=== PATIENT | male | born 1985 | race Caucasian/White ===

== ENCOUNTER 2017-06-21 17:00 | Emergency (ER) | payer BC, OTHER ==
[~2017-06-21] VITALS: Ht 180.3 cm; Wt 77.1 kg
[~2017-06-21 17:00] MED LIST: ACHD5005 PO; ALB0.5V INH; ALBU17AE23 IH; AMOX500C2 PO; BUPR8TAB SL; CIPR500T78 PO; DCS100C PO; DOXY100C2 PO; HCA25SU PR; HYDR-757 PO; HYOS0.1217 PO; IBUP-1780 PO; NAPR-243 PO; PENI500T; PHEN200T27 PO; PRCD5U PO; PRD20T PO; PRD50T PO; SRTR100T PO; SULF1TAB38 PO; TRM50T PO; buprenorphine PO
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
[2017-06-21] MEDS ORDERED: KETOROLAC 60 MG/2 ML VIAL IM ONE (18:00)
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
--- NOTE | 2017-06-21 18:54 | Diagnostic Imaging Report ---
INDICATION: Back pain. EXAMINATION: AP and lateral views of the lumbar spine were obtained. FINDINGS: The lumbar vertebrae are normal in height and alignment. There is no significant disc space narrowing. There is no fracture or malalignment. IMPRESSION: No acute bony abnormality in the lumbar spine. Dictated by: Dictated on workstation # [id number]
[2017-06-21 19:05] VITALS: BP 141/94
== END 2017-06-21 19:05 | disposition home or self-care (01) ==
LOC: EDUNIT# 17:00 → ER 17:04
DX: S39.012A Strain of muscle, fascia and tendon of lower back, initial encounter (principal); V03.00XA Pedestrian on foot injured in collision with car, pick-up truck or van in nontraffic accident, initial encounter; Y92.59 Other trade areas as the place of occurrence of the external cause; Y99.0 Civilian activity done for income or pay
CPT/HCPCS: 72072; 72100; 96372; 99284

== ENCOUNTER 2017-06-26 21:48 | Emergency (ER) | payer OTHER ==
[~2017-06-26] VITALS: Ht 180.3 cm; Wt 77.4 kg
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
[2017-06-26] MEDS ORDERED: ACETAMINOPHEN 500 MG TAB (TYLENOL) PO ONE (23:15)
[2017-06-26] MEDS ORDERED: ONDA4TAB8 PO (23:16)
[2017-06-26 23:24] VITALS: BP 119/76
--- OUTSIDE RECORDS SUMMARY | 2017-06-27 04:21 | XMS REPORT ---
Author Author BASSAM PIERRE Organization [employer] Address Unknown Phone Unavailable Care Team Providers Care Manager Validation Name Role Phone BASSAM PIERRE CP Unavailable Allergies No Known Allergies Problems No Known Problems Medications No Known Medications Results No Known Results Summary Purpose [employer] Submission
--- OUTSIDE RECORDS SUMMARY | 2017-06-27 04:21 | XMS REPORT ---
Author Author BASSAM PIERRE [employer] Address Unknown Phone Unavailable Care Team Providers Care Supervisor [employer] Name Role Phone BASSAM PIERRE CP Unavailable Allergies, Adverse Reactions, Alerts Substance Reaction Event Type N.K.D.A. Info Not Available Non Drug Allergy Problems Problem Type Condition Code Onset Dates Condition Status Assessment Yellow skin R17 Active Assessment Urine abnormality R82.90 Active Medications Medication Code System Code Instructions Start Date End Date Status Dosage Buprenorphine [facility] [id number] 10 MCG/HR Transdermal 1 patch to skin Procedures Procedure Coding System Code Date COMPLETE CBC W/AUTO DIFF WBC CPT-4 41883 Dec 15, 2015 VENIPUNCT, ROUTINE* CPT-4 38450 Dec 15, 2015 COMPREHEN METABOLIC PANEL CPT-4 45292 Dec 15, 2015 URINALYSIS, AUTO, W/O SCOPE CPT-4 41781 Dec 15, 2015 Office Visit, Est Pt., Level 3 CPT-4 79774 Dec 15, 2015 Vital Signs Date/Time: Dec 15, 2015 Temperature 99.2 F Weight 176.8 lbs Height 70 in BMI 25.37 Index Blood Pressure Diastolic 84 mmHg Blood Pressure Systolic 122 mmHg Cardiac Monitoring Heart Rate 88 bpm Results Name Result Date Reference Range Unit Abnormality Flag UA LONG DIP (IN HOUSE) ----SARAH Negative 20151215 ----NIT Negative 20151215 ----Exp date 05/19/201720151215 ----Lot # [id number] 20151215 ----SG 1.020 20151215 ----KET Trace 20151215 ----ASH Negative 20151215 ----GLU Negative 20151215 ----Odor Strong 20151215 ----pH 5.0 20151215 ----BLO Negative 20151215 ----URO 0.2 20151215 ----Protein Negative 20151215 ----Lot # [id number] 20151215 ----Exp date 07/20/201620151215 ----Clarity Clear 20151215 ----Color Yellow 20151215 ROUTINE VENIPUNCTURE Summary Purpose [employer] Submission
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
== END 2017-06-26 23:24 | disposition home or self-care (01) ==
LOC: EDUNIT# 21:48 → ER 21:49
DX: S05.11XA Contusion of eyeball and orbital tissues, right eye, initial encounter (principal); F32.9 Major depressive disorder, single episode, unspecified; Z98.890 Other specified postprocedural states; F17.210 Nicotine dependence, cigarettes, uncomplicated; W21.07XA Struck by softball, initial encounter; Y93.64 Activity, baseball
CPT/HCPCS: 70486; 99283

== ENCOUNTER 2017-07-30 07:21 | Emergency (ER) | payer SELFPAY ==
[~2017-07-30] VITALS: Ht 180.3 cm; Wt 77.4 kg
[~2017-07-30 07:21] MED LIST changes: +ONDA4TAB8 PO
[2017-07-30] MEDS ORDERED: IBUPROFEN 800 MG (MOTRIN) TAB PO STA (07:39)
--- NOTE | 2017-07-30 07:44 | ED Cough/URI ---
General Chief Complaint: Cough/Cold/Flu Symptoms Stated Complaint: FEVER/FLU SYMPTOMS Nursing Triage Note: AMB TO ROOM C/O FEVER AND BODY ACHES SINCE . MIGUEL ÁNGEL ON ADMIT. Source: patient Exam Limitations: no limitations History of Present Illness Time seen by provider: 07:32 Initial Comments Here with report of cough, fever and body aches that started 4 days ago. Seemed to be at its worse 2 days ago but persists to today. Complains of a clear runny nose and moderate cough. Has body aches and multiple joints. Mild headache reported. Reports that he is drinking okay and knows that he needs to drink more. Fever is responding to Tylenol and ibuprofen. Last dose of ibuprofen was yesterday and last dose of Tylenol was earlier this morning. Does report that he had fever of 104 Fahrenheit earlier. Timing/Duration: getting worse Severity/Quality: moderate, productive cough Prior Episodes/Possible Cause: occasional episodes Associated Symptoms: cough, fever/chills, headache, muscle aches, nasal congestion, nasal drainage, sore throat Allergies and Home Medications Allergies Coded Allergies: No Known Drug Allergies (Unverified , 08/06/12) Home Medications Buprenorphine HCl 8 Mg Tab.subl, 8 MG SL TID, #20 (Reported) Ibuprofen 800 Mg Tablet, 800 MG PO Q8H PRN for PAIN, #60 Ref 0 Prescribed by: SMOOTH GALLOWAY on 11/09/15 0141 Ondansetron 4 Mg Tab.rapdis, 4 MG PO Q6H PRN for NAUSEA/VOMITING-1ST LINE, #14 Ref 0 Prescribed by: NAYELI RANKIN on 06/26/17 2316 Constitutional: see HPI, No chills, fever EENTM: see HPI Respiratory: see HPI, cough, No short of breath, No wheezing Cardiovascular: no symptoms reported Gastrointestinal: no symptoms reported, No abdominal pain, No nausea, No vomiting Genitourinary: no symptoms reported Musculoskeletal: see HPI, joint pain, muscle pain Skin: no symptoms reported All Other Systems Reviewed Negative Unless Noted: Yes Past Bgfaqfh-Gbavdo-Ofieel Hx Patient Social History Alcohol Use: Denies Use Recreational Drug Use: Yes (Hydrocodone) Drug of Choice: HX Smoking Status: Current Everyday Smoker Recent Foreign Travel: No Contact w/Someone Who Travel: No Recent Infectious Disease Expo: No Recent Hopitalizations: Yes Immunizations Up To Date Tetanus Booster (TDap): Less than 5yrs Date of Pneumonia Vaccine: Aug 19, 2011 Date of Influenza Vaccine: Aug 14, 2012 Seasonal Allergies Seasonal Allergies: No Surgeries History of Surgeries: Yes (RIGHT ELBOW, RIGHT KNEE, TENDON FROM KNEE TO ELBOW) Surgeries: Orthopedic Respiratory History of Respiratory Disorde: No Cardiovascular History of Cardiac Disorders: No Neurological History of Neurological Disord: No Reproductive System Hx Reproductive Disorders: No Genitourinary History of Genitourinary Disor: No Gastrointestinal History of Gastrointestinal Di: Yes Gastrointestinal Disorders: Abdominal Hernia Musculoskeletal History of Musculoskeletal Dis: No Endocrine History of Endocrine Disorders: No HEENT History of HEENT Disorders: No Cancer History of Cancer: No Psychosocial History of Psychiatric Problem: Yes Behavioral Health Disorders: Depression Integumentary History of Skin or Integumenta: No Blood Transfusions History of Blood Disorders: No Reviewed Nursing Assessment Reviewed/Agree w Nursing PMH: Yes Family Medical History Significant Family History: No Pertinent Family Hx Physical Exam Vital Signs Vital Sign - Last 12Hours 07/30/17 07:28 Temp 102.2 Pulse 135 Resp 18 B/P (MAP) 111/64 Pulse Ox 96 O2 Delivery Room Air Capillary Refill : Less Than 3 Seconds General Appearance: WD/WN, no apparent distress HEENT: PERRL/EOMI, pharynx normal Neck: full range of motion, supple Respiratory: lungs clear, normal breath sounds Cardiovascular: no murmur, tachycardia Gastrointestinal: non tender, soft Extremities: non-tender, normal inspection Neurologic/Psychiatric: alert, oriented x 3 Skin: normal color, warm/dry Progress/Results/Core Measures Results/Orders My Orders Orders - SMOOTH GALLOWAY MD Chest Pa/Lat (2 View) (07/30/17 07:39) Ibuprofen Tablet (Motrin Tablet) (07/30/17 07:39) Vital Signs/I&O Vital Sign - Last 12Hours 07/30/17 07:28 Temp 102.2 Pulse 135 Resp 18 B/P (MAP) 111/64 Pulse Ox 96 O2 Delivery Room Air Blood Pressure Mean: 80 Progress Note : Progress Note Seen and evaluated. Two-view chest x-ray ordered. Ibuprofen 800 mg by mouth ordered. Patient would like to avoid IV if possible this is reasonable in the current situation. We will reevaluate after chest x-ray. Monitor patient. 0825: Improved. Chest x-ray is negative for pneumonia. Discharged home with return precautions. Patient verbalize understanding instructions and agreement with plan. Diagnostic Imaging Diagonstic Imaging: Xray Plain Films/CT/US/NM/MRI: chest Comments NAME: [facility]IE [facility] REC#: [id number] PT STATUS: REG ER : 1985 PHYSICIAN: SMOOTH GALLOWAY MD ADMIT DATE: 07/30/17/ER Draft Date of Exam:07/30/17 CHEST PA/LAT (2 VIEW) PA and lateral views of the chest INDICATION: Fever, flu symptoms. FINDINGS: The lungs demonstrate minimal opacity in the left lung base likely related to atelectasis. The right lung is clear. The heart size is normal. There is no effusion or pneumothorax The mediastinum and millie appear unremarkable. IMPRESSION: Minimal left basilar atelectasis. Dictated on workstation # [id number] Dict: 07/30/17806 Trans: 07/30/17812 [id number] Interpreted by: DELFIN WILBURN MD Electronically signed by: Departure Impression Impression: Primary Impression: Influenza-like symptoms Additional Impression: Fever Qualified Codes: R50.9 - Fever, unspecified Disposition: 01 HOME, SELF-CARE Condition: Stable Departure-Patient Inst. Decision time for Depature: 08:28 Referrals: WELLINGTON MCMILLAN DO (PCP/Family) Primary Care Physician Patient Instructions: Fever, Adult (DC), Viral Upper Respiratory Infection, Adult (DC) Add. Discharge Instructions: All discharge instructions reviewed with patient and/or family. Voiced understanding. Drink plenty of fluids. You may take Tylenol 1000 mg every 8 hours as needed for fever or pain. You may take ibuprofen 800 mg every 8 hours as needed for fever or pain. You may alternate these. Follow-up with your DrIris in a few days for recheck. Return for worse pain, fever, vomiting, weakness, breathing problems or other concerns as needed. SMOOTH GALLOWAY MD Jul 30, 2017 07:44
--- NOTE | 2017-07-30 08:13 | Diagnostic Imaging Report ---
PA and lateral views of the chest INDICATION: Fever, flu symptoms. FINDINGS: The lungs demonstrate minimal opacity in the left lung base likely related to atelectasis. The right lung is clear. The heart size is normal. There is no effusion or pneumothorax The mediastinum and millie appear unremarkable. IMPRESSION: Minimal left basilar atelectasis. Dictated by: Dictated on workstation # [id number]
[2017-07-30 08:36] VITALS: BP 110/69
== END 2017-07-30 08:35 | disposition home or self-care (01) ==
LOC: EDUNIT# 07:21 → ER 07:26
DX: J11.1 Influenza due to unidentified influenza virus with other respiratory manifestations (principal); F32.9 Major depressive disorder, single episode, unspecified; F17.200 Nicotine dependence, unspecified, uncomplicated; Z87.19 Personal history of other diseases of the digestive system
CPT/HCPCS: 71020; 99283

== ENCOUNTER 2018-07-26 12:19 | Emergency (ER) | payer SELFPAY ==
[~2018-07-26] VITALS: Ht 177.8 cm; Wt 79.4 kg
[~2018-07-26 12:19] MED LIST changes: +HYDR-4226 PO; -HYDR-757 PO
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
[2018-07-26] MEDS ORDERED: RT-ALBUTEROL/IPRATROPIUM 3 ML (DUONEB) VIAL ONE (13:26)
[2018-07-26] MEDS ORDERED: RT-ALBUTEROL/IPRATROPIUM 3 ML (DUONEB) VIAL INH ONE (13:30)
--- NOTE | 2018-07-26 13:31 | ED Cough/URI ---
General Chief Complaint: Cough/Cold/Flu Symptoms Stated Complaint: COUGH,FEVER,BODY ACHES Nursing Triage Note: COUGH, FEVER, BODY ACHES SINCE 07/25 NIGHT. Source: patient Exam Limitations: no limitations History of Present Illness Date Seen by Provider: Jul 26, 2018 Time Seen by Provider: 13:30 Initial Comments To ER with reports of fever up to 101 since last night, nonproductive cough, body aches. Timing/Duration: just prior to arrival Severity/Quality: dry cough Associated Symptoms: cough Allergies and Home Medications Allergies Coded Allergies: No Known Drug Allergies (Unverified , 08/06/12) Home Medications Buprenorphine HCl 8 Mg Tab.subl, 8 MG SL TID, (Reported) Ibuprofen 800 Mg Tablet, 800 MG PO Q8H PRN for PAIN Prescribed by: SMOOTH GALLOWAY on 11/09/15 0141 Ondansetron 4 Mg Tab.rapdis, 4 MG PO Q6H PRN for NAUSEA/VOMITING-1ST LINE Prescribed by: NAYELI RANKIN on 06/26/17 2266 Patient Home Medication List Home Medication List Reviewed: Yes Review of Systems Review of Systems Constitutional: see HPI EENTM: see HPI Respiratory: see HPI Cardiovascular: no symptoms reported Genitourinary: no symptoms reported Musculoskeletal: no symptoms reported Skin: no symptoms reported Psychiatric/Neurological: No Symptoms Reported Past Qnjxxlj-Qoedgi-Cwkuen Hx Patient Social History Alcohol Use: Denies Use Recreational Drug Use: Yes (Hydrocodone) Drug of Choice: HX Smoking Status: Current Everyday Smoker Type Used: Cigarettes Recent Foreign Travel: No Contact w/Someone Who Travel: No Recent Infectious Disease Expo: No Recent Hopitalizations: Yes Physical Abuse: No Sexual Abuse: No Immunizations Up To Date Tetanus Booster (TDap): Less than 5yrs Date of Pneumonia Vaccine: Aug 19, 2011 Date of Influenza Vaccine: Aug 14, 2012 Seasonal Allergies Seasonal Allergies: No Past Medical History Surgeries: Yes (RIGHT ELBOW, RIGHT KNEE, TENDON FROM KNEE TO ELBOW) Orthopedic Respiratory: No Cardiac: No Neurological: No Reproductive Disorders: No Genitourinary: No Gastrointestinal: Yes Abdominal Hernia Musculoskeletal: No Endocrine: No HEENT: No Cancer: No Psychosocial: Yes Depression Integumentary: No Blood Disorders: No Family Medical History No Pertinent Family Hx Physical Exam Vital Signs - First Documented 07/26/18 12:42 Temp 98.5 Pulse 90 Resp 14 B/P (MAP) 122/83 (96) Pulse Ox 97 O2 Flow Rate 97.00 Capillary Refill : Less Than 3 Seconds Height: 5'10.00" Weight: 175lbs. 9.0oz. 79.161948mx; 25.80 BMI Method:Stated General Appearance: WD/WN, no apparent distress Eyes: Bilateral Eye Normal Inspection, Bilateral Eye PERRL, Bilateral Eye EOMI HEENT: PERRL/EOMI, normal ENT inspection Neck: non-tender, full range of motion Respiratory: normal breath sounds, no respiratory distress, no accessory muscle use Cardiovascular: regular rate, rhythm, no murmur Gastrointestinal: normal bowel sounds, non tender, soft Neurologic/Psychiatric: alert, normal mood/affect, oriented x 3 Skin: normal color, warm/dry Progress/Results/Core Measures Suspected Sepsis Recent Fever Within 48 Hours: Yes Infection Criteria Present: Suspected New Infection New/Unexplained Altered Menta: No Sepsis Screen: No Definite Risk SIRS Temperature:98.5 Pulse: 90 Respiratory Rate: 14 Blood Pressure 122 /83 Mean: 96 Results/Orders My Orders Orders - ELIZA SHANNON APRN Chest Pa/Lat (2 View) (07/26/18 12:54) Albuterol/Ipra Inhalation Soln (Duoneb I (07/26/18 13:30) Svn Small Volume Nebulizer (07/26/18 13:27) Albuterol/Ipra Inhalation Soln (Duoneb I (07/26/18 13:26) Medications Given in ED Current Medications Medications Dose Ordered Sig/Ant Route Start Time Stop Time Status Last Admin Dose Admin Albuterol/ Ipratropium 3 ml ONCE ONCE INH 07/26/18 13:30 07/26/18 13:31 DC 07/26/18 13:33 3 ML Vital Signs/I&O 07/26/18 07/26/18 12:42 12:42 Temp 98.5 Pulse 90 Resp 14 B/P (MAP) 122/83 (96) Pulse Ox 97 O2 Flow Rate 97.00 Capillary Refill : Less Than 3 Seconds Blood Pressure Mean: 96 Departure Impression Primary Impression: Bronchitis Disposition: 01 HOME, SELF-CARE Condition: Stable Departure-Patient Inst. Decision time for Depature: 13:37 Referrals: WELLINGTON MCMILLAN DO (PCP/Family) Primary Care Physician Patient Instructions: Acute Bronchitis, Adult (DC) Add. Discharge Instructions: 1. Return to ER for any concerns 2. Follow-up with your doctor next week 3. Steroids as directed. Inhaler 2 puffs every 4 hours as needed for wheezing shortness of breath. All discharge instructions reviewed with patient and/or family. Voiced understanding. Scripts Albuterol Sulfate (PROAIR HFA) 1 Puff Puff 2 PUFF IH Q4H, #1 PUFF 1 PUFF = 90 MCG Prov: ELIZA SHANNON APRN 07/26/18 Azithromycin (Azithromycin) 250 Mg Tablet 250 MG PO UD, #6 TAB TAKE 2 TABLETS ON DAY ONE THEN TAKE 1 TABLET DAILY FOR FOUR MORE DAYS Prov: ELIZA SHANNON APRN 07/26/18 Methylprednisolone (Medrol) 4 Mg Tab.ds.pk 4 MG PO UD, #1 PKG Prov: ELIZA SHANNON APRN 07/26/18 Work/School Note: Work Release Form Date Seen in the Emergency Department: Jul 26, 2018 Return to Work: Jul 28, 2018 EILZA SHANNON APRN Jul 26, 2018 13:31
--- NOTE | 2018-07-26 13:33 | Diagnostic Imaging Report ---
INDICATION: Cough and fever. TIME OF EXAM: 01:42 p.m. Correlation is made with prior study from 07/30/2017. The heart size is normal. The pulmonary vascularity is unremarkable. The lungs are clear. No infiltrate, effusion or pneumothorax is detected. IMPRESSION: No acute cardiopulmonary process is detected. Dictated by: Dictated on workstation # [id number]
[2018-07-26] MEDS ORDERED: RT-ALBUINH IH (13:39)
[2018-07-26] MEDS ORDERED: AZIT250T12 PO (13:39)
[2018-07-26] MEDS ORDERED: METH4TAB PO (13:39)
[2018-07-26] MEDS ORDERED: DEXAMETHASONE PF 10 MG/ML (DECADRON) VIAL ONE (13:47)
[2018-07-26 13:56] VITALS: BP 122/83
[2018-07-26] MEDS ORDERED: DEXAMETHASONE 10 MG/ML (DECADRON) 1 ML VIAL IM ONE (14:00)
== END 2018-07-26 13:56 | disposition home or self-care (01) ==
LOC: EDUNIT# 12:19 → ER 12:20
DX: J40 Bronchitis, not specified as acute or chronic (principal); F32.9 Major depressive disorder, single episode, unspecified; F17.210 Nicotine dependence, cigarettes, uncomplicated; Z87.19 Personal history of other diseases of the digestive system
CPT/HCPCS: 71046

== ENCOUNTER 2018-10-24 11:31 | Emergency (ER) | payer OTHER ==
[~2018-10-24] VITALS: Ht 177.8 cm; Wt 81.6 kg
[~2018-10-24 11:31] MED LIST changes: +AZIT250T12 PO; +METH4TAB PO; +RT-ALBUINH IH
[2018-10-24] MEDS ORDERED: ACETAMINOPHEN 500 MG TAB (TYLENOL) PO STA (11:41)
--- NOTE | 2018-10-24 11:53 | ED Cough/URI ---
General Chief Complaint: Fever-Adult/Adol Stated Complaint: FLU SYMPTOMS Nursing Triage Note: Pt ambulated to rm 5 w/o difficulty. Pt reports cough that began yesterday and fever last night, accompanied by generalized body aches. Pt reports fever of 102.4 last night. Pt denies antipyretics today. Pt denies sore throat at this time. (BENJY FERMIN) History of Present Illness Date Seen by Provider: Oct 24, 2018 Time Seen by Provider: 11:40 Initial Comments 33-year-old male presents for fever, cough and congestion. He has had a dull headache. Symptoms started approximately 2 days ago. He did not receive a flu vaccine measure. He took ibuprofen last night which did relieve his fever and used albuterol which he reports helped with the cough and congestion. He denies being short of breath. He is a smoker but has not been tolerating tobacco since symptoms started. He denies any nausea or vomiting, however his appetite has been less than usual. Timing/Duration: yesterday Severity/Quality: moderate, productive cough Prior Episodes/Possible Cause: no prior episodes Modifying Factors: Improves With Coughing, Improves With Lying Down, Improves With Rest Associated Symptoms: fever/chills, headache, nasal congestion, nasal drainage (BENJY FERMIN) Allergies and Home Medications Allergies Coded Allergies: No Known Drug Allergies (Unverified , 08/06/12) Home Medications Albuterol Sulfate 1 Puff Puff, 2 PUFF IH Q4H 1 PUFF = 90 MCG Prescribed by: ELIZA SHANNON on 07/26/18 1339 Albuterol Sulfate 2.5 Mg/0.5 Ml Vial.neb, 2.5 MG INH Q4H Prescribed by: MIKY CORNEJO on 10/24/18 1428 Azithromycin 250 Mg Tablet, 250 MG PO UD TAKE 2 TABLETS ON DAY ONE THEN TAKE 1 TABLET DAILY FOR FOUR MORE DAYS Prescribed by: ELIZA SHANNON on 07/26/18 1339 Azithromycin 250 Mg Tablet, 250 MG PO UD TAKE 2 TABLETS ON DAY ONE THEN TAKE 1 TABLET DAILY FOR FOUR MORE DAYS Prescribed by: MIKY CORNEJO on 10/24/18 1428 Buprenorphine HCl 8 Mg Tab.subl, 8 MG SL TID, (Reported) Ibuprofen 800 Mg Tablet, 800 MG PO Q8H PRN for PAIN Prescribed by: SMOOTH GALLOWAY on 11/09/15 0141 Methylprednisolone 4 Mg Tab.ds.pk, 4 MG PO UD Prescribed by: ELIZA SHANNON on 07/26/18 1339 Ondansetron 4 Mg Tab.rapdis, 4 MG PO Q6H PRN for NAUSEA/VOMITING-1ST LINE Prescribed by: NAYELI RANKIN on 06/26/17 2316 Oseltamivir Phosphate 75 Mg Capsule, 75 MG PO BID Prescribed by: MIKY CORNEJO on 10/24/18 1428 Prednisone 20 Mg Tab, 40 MG PO DAILY Take 3 tabs(60mg)daily, decrease by 1/2 tab(10mg)daily. Prescribed by: MIKY CORNEJO on 10/24/18 142 Patient Home Medication List Home Medication List Reviewed: Yes (BENJY FERMIN) Review of Systems Review of Systems Constitutional: no symptoms reported Respiratory: see HPI, cough, wheezing Gastrointestinal: no symptoms reported, see HPI (BENJY FERMIN) All Other Systems Reviewed Negative Unless Noted: Yes (BENJY FERMIN) Past Zpjvfwx-Hhejwu-Fdneau Hx Past Med/Social Hx: Reviewed Nursing Past Med/Soc Hx (BENJY FERMIN) Patient Social History Alcohol Use: Denies Use Recreational Drug Use: Yes (Hydrocodone) Drug of Choice: HX Smoking Status: Current Everyday Smoker Type Used: Cigarettes Recent Foreign Travel: No Contact w/Someone Who Travel: No Recent Infectious Disease Expo: No Recent Hopitalizations: Yes (BENJY FERMIN) Immunizations Up To Date Tetanus Booster (TDap): Less than 5yrs Date of Pneumonia Vaccine: Aug 19, 2011 Date of Influenza Vaccine: Aug 14, 2012 (BENJY FERMIN) Seasonal Allergies Seasonal Allergies: No (BENJY FERMIN) Past Medical History Surgeries: Yes (RIGHT ELBOW, RIGHT KNEE, TENDON FROM KNEE TO ELBOW) Orthopedic Respiratory: No Cardiac: No Neurological: No Reproductive Disorders: No Genitourinary: No Gastrointestinal: Yes Abdominal Hernia Musculoskeletal: No Endocrine: No HEENT: No Cancer: No Psychosocial: Yes Depression Integumentary: No Blood Disorders: No (BENJY FERMIN) Family Medical History No Pertinent Family Hx (BENJY FERMIN) Physical Exam Vital Signs - First Documented 10/24/18 10/24/18 11:36 13:16 Temp 101.7 Pulse 120 Resp 15 B/P (MAP) 133/89 (104) Pulse Ox 93 O2 Delivery Room Air O2 Flow Rate 2.00 (MIKY CORNEJO) Capillary Refill : Less Than 3 Seconds (BENJY FERMIN) Height: 5'10.00" Weight: 180lbs. 9.0oz. 81.912631gb; 25.80 BMI Method:Stated General Appearance: WD/WN, no apparent distress Eyes: Bilateral Eye Normal Inspection, Bilateral Eye PERRL, Bilateral Eye EOMI HEENT: PERRL/EOMI, normal ENT inspection, TMs normal, pharynx normal, other ( oral mucosa pink and moist.) Neck: non-tender, full range of motion, supple, normal inspection; No lymphadenopathy (R), No lymphadenopathy (L) Respiratory: chest non-tender, lungs clear, no respiratory distress, decreased breath sounds, wheezing Cardiovascular: normal peripheral pulses, regular rate, rhythm Gastrointestinal: normal bowel sounds, non tender, soft Neurologic/Psychiatric: no motor/sensory deficits, alert, normal mood/affect, oriented x 3 Skin: normal color, warm/dry Lymphatic: no adenopathy (BENJY FERMIN) Focused Exam Lactate Level 10/24/18 13:20: Lactic Acid Level 1.01 (MIKY CORNEJO) Lactic Acid Level Laboratory Tests Test 10/24/18 13:20 Lactic Acid Level 1.01 MMOL/L (0.50-2.00) (MIKY CORNEJO) Progress/Results/Core Measures Suspected Sepsis Recent Fever Within 48 Hours: Yes Infection Criteria Present: Suspected New Infection New/Unexplained Altered Menta: No Sepsis Screen: Possible Sepsis Risk SIRS Temperature:101.7 Pulse: 120 Respiratory Rate: 15 Laboratory Tests 10/24/18 13:20: White Blood Count 12.0H Blood Pressure 133 /89 Mean: 104 10/24/18 13:20: Lactic Acid Level 1.01 Laboratory Tests 10/24/18 13:20: Creatinine 1.11, Platelet Count 168, Total Bilirubin 0.6 (BENJY FERMIN) Results/Orders Lab Results Laboratory Tests Test 10/24/18 13:15 10/24/18 13:20 10/24/18 13:44 Range/Units Urine Color YELLOW Urine Clarity CLEAR Urine pH 5 5-9 Urine Specific [place] 1.015 L 1.016-1.022 Urine Protein NEGATIVE NEGATIVE Urine Glucose (UA) NEGATIVE NEGATIVE Urine Ketones NEGATIVE NEGATIVE Urine Nitrite NEGATIVE NEGATIVE Urine Bilirubin NEGATIVE NEGATIVE Urine Urobilinogen NORMAL NORMAL MG/DL Urine Leukocyte Esterase NEGATIVE NEGATIVE Urine RBC (Auto) NEGATIVE NEGATIVE Urine RBC NONE /HPF Urine WBC 0-2 /HPF Urine Squamous Epithelial Cells RARE /HPF Urine Renal Epithelial Cells NONE /HPF Urine Crystals NONE /LPF Urine Bacteria NEGATIVE /HPF Urine Casts NONE /LPF Urine Mucus MODERATE H /LPF Urine Culture Indicated NO White Blood Count 12.0 H 4.3-11.0 10^3/uL Red Blood Count 5.19 4.35-5.85 10^6/uL Hemoglobin 15.6 13.3-17.7 G/DL Hematocrit 46 40-54 % Mean Corpuscular Volume 88 80-99 FL Mean Corpuscular Hemoglobin 30 25-34 PG Mean Corpuscular Hemoglobin Concent 34 32-36 G/DL Red Cell Distribution Width 13.2 10.0-14.5 % Platelet Count 168 130-400 10^3/uL Mean Platelet Volume 10.4 7.4-10.4 FL Neutrophils (%) (Auto) 80 H 42-75 % Lymphocytes (%) (Auto) 11 L 12-44 % Monocytes (%) (Auto) 6 0-12 % Eosinophils (%) (Auto) 3 0-10 % Basophils (%) (Auto) 0 0-10 % Neutrophils # (Auto) 9.7 H 1.8-7.8 X 10^3 Lymphocytes # (Auto) 1.4 1.0-4.0 X 10^3 Monocytes # (Auto) 0.7 0.0-1.0 X 10^3 Eosinophils # (Auto) 0.4 H 0.0-0.3 10^3/uL Basophils # (Auto) 0.0 0.0-0.1 10^3/uL Sodium Level 138 135-145 MMOL/L Potassium Level 4.0 3.6-5.0 MMOL/L Chloride Level 104 98-107 MMOL/L Carbon Dioxide Level 23 21-32 MMOL/L Anion Gap 11 5-14 MMOL/L Blood Urea Nitrogen 16 7-18 MG/DL Creatinine 1.11 0.60-1.30 MG/DL Estimat Glomerular Filtration Rate > 60 BUN/Creatinine Ratio 14 Glucose Level 102 70-105 MG/DL Lactic Acid Level 1.01 0.50-2.00 MMOL/L Calcium Level 9.7 8.5-10.1 MG/DL Corrected Calcium 9.3 8.5-10.1 MG/DL Total Bilirubin 0.6 0.1-1.0 MG/DL Aspartate Amino Transf (AST/SGOT) 21 5-34 U/L Alanine Aminotransferase (ALT/SGPT) 15 0-55 U/L Alkaline Phosphatase 70 40-136 U/L Total Protein 7.7 6.4-8.2 GM/DL Albumin 4.5 3.2-4.5 GM/DL Glucometer 117 H 70-110 MG/DL (MIKY CORNEJO) Micro Results Microbiology 10/24/18 Influenza Types A,B Antigen (STEF) - Final, Complete (MIKY CORNEJO) My Orders Orders - MIKY CORNEJO Cbc With Automated Diff (10/24/18 13:00) Comprehensive Metabolic Panel (10/24/18 13:00) Lactic Acid Analyzer (10/24/18 13:00) Ua Culture If Indicated (10/24/18 13:00) Blood Culture (10/24/18 13:00) Accucheck Stat ONCE (10/24/18 13:00) Saline Lock/Iv-Start (10/24/18 13:00) Ns Iv 1000 Ml (Sodium Chloride 0.9%) (10/24/18 13:00) Albuterol Pre-Mix Nebs (Rt) (Proventil (10/24/18 13:08) Albuterol/Ipra Inhalation Soln (Duoneb I (10/24/18 13:15) Svn Small Volume Nebulizer (10/24/18 13:08) Svn Small Volume Nebulizer (10/24/18 13:08) Methylprednisolone Sod Succ (Solu-Medrol (10/24/18 14:30) (MIKY CORNEJO) Medications Given in ED Current Medications Medications Dose Ordered Sig/Ant Route Start Time Stop Time Status Last Admin Dose Admin Albuterol/ Ipratropium 3 ml ONCE ONCE INH 10/24/18 12:00 10/24/18 12:01 DC 10/24/18 11:50 3 ML Albuterol/ Ipratropium 3 ml ONCE ONCE INH 10/24/18 13:15 10/24/18 13:16 DC 10/24/18 13:16 3 ML Methylprednisolone Sodium Succinate 125 mg ONCE ONCE IVP 10/24/18 14:30 10/24/18 14:31 DC 10/24/18 14:31 125 MG (MIKY CORNEJO) Vital Signs/I&O 10/24/18 10/24/18 10/24/18 11:36 13:16 14:42 Temp 101.7 98.6 Pulse 120 106 Resp 15 15 B/P (MAP) 133/89 (104) 124/78 (93) Pulse Ox 93 96 92 O2 Delivery Room Air Nasal Cannula Room Air O2 Flow Rate 2.00 (MIKY CORNEJO) Vital Signs/I&O Capillary Refill : Less Than 3 Seconds (BENJY FERMIN) Blood Pressure Mean: 104 Progress Note : Time: 11:40 Progress Note Patient seen and evaluated, will obtain an influenza screen, Tylenol thousand milligrams by mouth and DuoNeb breathing treatment. We will continue to monitor. 1210 influenza A- and B-. 1220 temp 100.9, SaO2 ranging from 90-94% on room air, will obtain chest x- ray. Lung sounds have improved airflow, wheezing has improved but still present in upper lobes. (BENJY FERMIN) Diagnostic Imaging Diagonstic Imaging: Xray Plain Films/CT/US/NM/MRI: chest Comments FINDINGS: Frontal and lateral views of the chest demonstrate normal heart size and pulmonary vascularity. The lungs are clear. There are no signs of infiltrate , pleural effusions or pneumothoraces. The visualized osseous structures show no acute abnormalities. IMPRESSION: 1. No acute process. No signs of infiltrates , effusions or pneumothoraces. Dictated on workstation # [id number] Reviewed: Reviewed by Me (radiology report reviewed by me) (MIKY CORNEJO) Departure Communication (Admissions) 1230 Patient care assumed from PATIRCIA Cherry. Patient denies improvement with the duoneb treatment. CXR and influenza results discussed with the patient. Patient is alert and oriented x4, NAD. patient noted to have wheezing and rhonchi bilaterally in all lung myrick with an SaO2 of 93% on room air. CV tachycardic. regular rhythm. Patient given 1 duoneb and 1 albuterol neb tx with improved Breath sounds bilaterally. labs obtained and patient was given 1 liter NS. SaO2 98% on RA post neb treatments. all laboratory findings discussed with the patient. in light of a negative influenza test, patient's history and exam findings are consistent with an influenza like illness. plan for dsch to home after 1 dose of 125 mg solu-medrol IV. Patient instructed to f /u with Dr. Fletcher tomorrow or sunday for recheck. if symptoms worsen, he is to return immediately to the ED. Patient verbalizes understanding and agrees with the treatment plan. (MIKY CORNEJO) Impression Primary Impression: Influenza-like symptoms Additional Impression: Asthma exacerbation Qualified Codes: J45.901 - Unspecified asthma with (acute) exacerbation Disposition: HOME, SELF-CARE Condition: Improved Departure-Patient Inst. Decision time for Depature: 14:25 (MIKY CORNEJO) Referrals: WELLINGTON FLETCHER DO (PCP/Family) Primary Care Physician Patient Instructions: Asthma, Adult (DC), Flu, Adult (DC) Add. Discharge Instructions: All discharge instructions reviewed with patient and/or family. Voiced understanding. Medications as instructed. Ugep-rbs-itkzqsr decongestants and antihistamines as needed. Follow-up with Dr. FLETCHER tomorrow or Sunday for recheck. Call for appointment time today. Return to the emergency department for worsened symptoms or any other concerns. Scripts Albuterol Sulfate (Albuterol Sulfate) 2.5 Mg/0.5 Ml Vial.neb 2.5 MG INH Q4H for SHORTNESS OF BREATH, #25 EACH 0 Refills Prov: MIKY CORNEJO 10/24/18 Prednisone (Prednisone) 20 Mg Tab 40 MG PO DAILY, #10 TAB 0 Refills Take 3 tabs(60mg)daily, decrease by 1/2 tab(10mg)daily. Prov: MIKY CORNEJO 10/24/18 Azithromycin (Azithromycin) 250 Mg Tablet 250 MG PO UD, #6 TAB 0 Refills TAKE 2 TABLETS ON DAY ONE THEN TAKE 1 TABLET DAILY FOR FOUR MORE DAYS Prov: MIKY CORNEJO 10/24/18 Oseltamivir Phosphate (Oseltamivir Phosphate) 75 Mg Capsule 75 MG PO BID, #10 CAP 0 Refills Prov: MIKY CORNEJO 10/24/18 Work/School Note: Work Release Form Date Seen in the Emergency Department: Oct 24, 2018 Return to Work: Oct 26, 2018 Restrictions: Return-No Fever (24hrs) BENJY FERMIN Oct 24, 2018 11:53 MIKY CORNEJO Oct 24, 2018 13:39
[2018-10-24] MEDS ORDERED: RT-ALBUTEROL/IPRATROPIUM 3 ML (DUONEB) VIAL INH ONE ×2 (12:00→13:15)
--- NOTE | 2018-10-24 12:58 | Diagnostic Imaging Report ---
INDICATION: Cough. Congestion. Fever. Hypoxia. COMPARISON: 07/26/2018. FINDINGS: Frontal and lateral views of the chest demonstrate normal heart size and pulmonary vascularity. The lungs are clear. There are no signs of infiltrate, pleural effusions or pneumothoraces. The visualized osseous structures show no acute abnormalities. IMPRESSION: 1. No acute process. No signs of infiltrates, effusions or pneumothoraces. Dictated by: Dictated on workstation # [id number]
[2018-10-24] MEDS ORDERED: NS IV 1000 ML 1,000 ML IV SCH (13:00)
[2018-10-24] MEDS ORDERED: RT-ALBUTEROL SULF 2.5 MG/3 ML PRE-MIX VIAL INH STA (13:08)
[2018-10-24 13:34] LABS: BASOPHILS % (AUTO) 0 % (0-10); EOSINOPHILS # (AUTO) 0.4 10^3/uL (0.0-0.3); EOSINOPHILS % (AUTO) 3 % (0-10); HEMATOCRIT 46 % (40-54); HEMOGLOBIN 15.6 G/DL (13.3-17.7); LYMPHOCYTES # (AUTO) 1.4 X 10^3 (1.0-4.0); LYMPHOCYTES % (AUTO) 11 % (12-44); MEAN CORPUSCULAR HEMOGLOBIN 30 PG (25-34); MEAN CORPUSCULAR HGB CONC 34 G/DL (32-36); MEAN CORPUSCULAR VOLUME 88 FL (80-99); MEAN PLATELET VOLUME 10.4 FL (7.4-10.4); MONOCYTES # (AUTO) 0.7 X 10^3 (0.0-1.0); MONOCYTES % (AUTO) 6 % (0-12); NEUTROPHILS # (AUTO) 9.7 X 10^3 (1.8-7.8); NEUTROPHILS % (AUTO) 80 % (42-75); PLATELET COUNT 168 10^3/uL (130-400); RED BLOOD COUNT 5.19 10^6/uL (4.35-5.85); RED CELL DISTRIBUTION WIDTH 13.2 % (10.0-14.5)
[2018-10-24 13:40] LABS: BILIRUBIN,URINE NEGATIVE (NEGATIVE); CLARITY,URINE CLEAR; COLOR,URINE YELLOW; GLUCOSE, URINE (UA) NEGATIVE (NEGATIVE); KETONES,URINE NEGATIVE (NEGATIVE); LEUKOCYTE ESTERASE ,URINE NEGATIVE (NEGATIVE); NITRITE,URINE NEGATIVE (NEGATIVE); PH,URINE 5 (5-9); PROTEIN,URINE NEGATIVE (NEGATIVE); UROBILINOGEN,URINE NORMAL (NORMAL)
[2018-10-24 13:56] LABS: ALANINE AMINOTRANSFERASE 15 U/L (0-55); ALBUMIN 4.5 GM/DL (3.2-4.5); ALKALINE PHOSPHATASE 70 U/L (40-136); BILIRUBIN,TOTAL 0.6 MG/DL (0.1-1.0); BUN/CREATININE RATIO 14; CALCIUM 9.7 MG/DL (8.5-10.1); CARBON DIOXIDE 23 MMOL/L (21-32); CHLORIDE 104 MMOL/L (98-107); CREATININE SERUM 1.11 MG/DL (0.60-1.30); GFR ESTIMATED > 60; GLUCOSE 102 MG/DL (70-105); SODIUM 138 MMOL/L (135-145); TOTAL PROTEIN 7.7 GM/DL (6.4-8.2)
[2018-10-24 14:04] LABS: BACTERIA,URINE NEGATIVE /HPF; SQUAMOUS EPITHELIAL CELL,UR RARE /HPF; WBC,URINE 0-2 /HPF
[2018-10-24] MEDS ORDERED: PRD20T PO (14:28)
[2018-10-24] MEDS ORDERED: ALB0.5V INH (14:28)
[2018-10-24] MEDS ORDERED: OSEL75CA15 PO (14:28)
[2018-10-24] MEDS ORDERED: AZIT250T12 PO (14:28)
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
[2018-10-24] MEDS ORDERED: methylPREDNISolone 125 MG (Solu-MEDROL) VIAL IVP ONE (14:30)
[2018-10-24 14:42] VITALS: BP 124/78
== END 2018-10-24 14:42 | disposition home or self-care (01) ==
LOC: EDUNIT# 11:31 → ER 11:32
DX: J10.1 Influenza due to other identified influenza virus with other respiratory manifestations (principal); J45.901 Unspecified asthma with (acute) exacerbation; F32.9 Major depressive disorder, single episode, unspecified; F17.210 Nicotine dependence, cigarettes, uncomplicated; Z79.51 Long term (current) use of inhaled steroids; Z79.52 Long term (current) use of systemic steroids; Z87.19 Personal history of other diseases of the digestive system
CPT/HCPCS: 36415; 71046; 80053; 81000; 82962; 83605; 85025; 87040; 87804; 94640

== ENCOUNTER 2019-12-21 21:33 | Emergency (ER) | payer OTHER ==
[~2019-12-21] VITALS: Ht 180 cm; Wt 84.9 kg
[~2019-12-21 21:33] MED LIST changes: +OSEL75CA15 PO
[2019-12-21] MEDS ORDERED: IBUPROFEN TABLET 200 MG TAB PO ONE (22:00)
--- NOTE | 2019-12-21 22:03 | ED General ---
General Chief Complaint: Fever-Adult/Adol Stated Complaint: FEVER,COUGH Nursing Triage Note: pt states he recently traveled to [facility] . today became feverish and experienced chills. verbalizes intermittent cough, non productive. Nursing Sepsis Screen: Possible Severe Sepsis Risk Source of Information: Patient Exam Limitations: No Limitations History of Present Illness Date Seen by Provider: Dec 21, 2019 Time Seen by Provider: 21:53 Initial Comments This 34-year-old man presents to the emergency room with complaints of cough, myalgia, but headache, and fever. He has not been feeling well since December 18. He started feeling ill and chilled when he was returning home from an [id number] trip. He is febrile and tachycardic at present. He has not taken any antipyretics and asks for Tylenol or ibuprofen. Allergies and Home Medications Allergies Coded Allergies: No Known Drug Allergies (Unverified , 08/06/12) Home Medications Albuterol Sulfate 1 Puff Puff, 2 PUFF IH Q4H 1 PUFF = 90 MCG Prescribed by: ELIZA SHANNON on 07/26/18 133 Albuterol Sulfate 2.5 Mg/0.5 Ml Vial.neb, 2.5 MG INH Q4H Prescribed by: MIKY CORNEJO on 10/24/18 1428 Azithromycin 250 Mg Tablet, 250 MG PO UD TAKE 2 TABLETS ON DAY ONE THEN TAKE 1 TABLET DAILY FOR FOUR MORE DAYS Prescribed by: ELIZA SHANNON on 07/26/18 133 Azithromycin 250 Mg Tablet, 250 MG PO UD TAKE 2 TABLETS ON DAY ONE THEN TAKE 1 TABLET DAILY FOR FOUR MORE DAYS Prescribed by: MIKY CORNEJO on 10/24/18 1428 Azithromycin 250 Mg Tablet, 250 MG PO DAILY Prescribed by: ROHIT HAN on 12/21/19 2254 Buprenorphine HCl 8 Mg Tab.subl, 8 MG SL TID, (Reported) Ibuprofen 800 Mg Tablet, 800 MG PO Q8H PRN for PAIN Prescribed by: SMOOTH GALLOWAY on 11/09/15 0141 Methylprednisolone 4 Mg Tab.ds.pk, 4 MG PO UD Prescribed by: ELIZA SHANNON on 07/26/18 133 Ondansetron 4 Mg Tab.rapdis, 4 MG PO Q6H PRN for NAUSEA/VOMITING-1ST LINE Prescribed by: NAYELI RANKIN on 06/26/17 2316 Oseltamivir Phosphate 75 Mg Capsule, 75 MG PO BID Prescribed by: MIKY CORNEJO on 10/24/18 142 Prednisone 20 Mg Tab, 40 MG PO DAILY Take 3 tabs(60mg)daily, decrease by 1/2 tab(10mg)daily. Prescribed by: MIKY CORNEJO on 10/24/181427 Patient Home Medication List Home Medication List Reviewed: Yes Review of Systems Review of Systems Constitutional: see HPI EENTM: no symptoms reported Respiratory: see HPI Cardiovascular: see HPI Gastrointestinal: no symptoms reported Genitourinary: no symptoms reported Musculoskeletal: no symptoms reported Skin: no symptoms reported Psychiatric/Neurological: See HPI Hematologic/Lymphatic: No Symptoms Reported Immunological/Allergic: no symptoms reported Past Sctbxbd-Ackkjf-Zkmliw Hx Past Med/Social Hx: Reviewed Nursing Past Med/Soc Hx Patient Social History Alcohol Use: Denies Use Recreational Drug Use: Yes (Hydrocodone) Drug of Choice: HX Smoking Status: Current Everyday Smoker Type Used: Cigarettes Recent Foreign Travel: No Contact w/Someone Who Travel: No Recent Infectious Disease Expo: No Recent Hopitalizations: Yes Physical Abuse: No Sexual Abuse: No Mistreated: No Fear: No Immunizations Up To Date Tetanus Booster (TDap): Less than 5yrs PED Vaccines UTD: Yes Date of Pneumonia Vaccine: Aug 19, 2011 Date of Influenza Vaccine: Aug 14, 2012 Seasonal Allergies Seasonal Allergies: No Past Medical History Surgeries: Yes (RIGHT ELBOW, RIGHT KNEE, TENDON FROM KNEE TO ELBOW) Orthopedic Respiratory: No Cardiac: No Neurological: No Reproductive Disorders: No Genitourinary: No Gastrointestinal: Yes Abdominal Hernia Musculoskeletal: No Endocrine: No HEENT: No Cancer: No Psychosocial: Yes Depression Integumentary: No Blood Disorders: No Family Medical History No Pertinent Family Hx Physical Exam Vital Signs Vital Signs - First Documented 12/21/19 21:44 Temp 39.3 Pulse 108 Resp 20 B/P (MAP) 150/86 (107) Pulse Ox 99 O2 Delivery Room Air Capillary Refill : Less Than 3 Seconds Height, Weight, BMI Height: 5'10.00" Weight: 180lbs. 9.0oz. 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 Norm as Tested Skin: Normal Color, Warm/Dry Progress/Results/Core Measures Suspected Sepsis Recent Fever Within 48 Hours: Yes Infection Criteria Present: Suspected New Infection New/Unexplained Altered Menta: No Sepsis Screen: Possible Severe Sepsis Risk SIRS Temperature: Pulse: 108 Respiratory Rate: 20 Blood Pressure 150 /86 Mean: 107 Results/Orders Micro Results Microbiology 12/21/19 Influenza Types A,B Antigen (STEF) - Final, Complete My Orders Orders - ROHIT BRANHAM MD Influenza A And B Antigens (12/21/19 21:37) Ibuprofen Tablet (Motrin Tablet) (12/21/19 22:00) Chest Pa/Lat (2 View) (12/21/19 22:14) Azithromycin Tablet (Zithromax Tablet) (12/21/19 22:45) Medications Given in ED Current Medications Medications Dose Ordered Sig/Ant Route Start Time Stop Time Status Last Admin Dose Admin Azithromycin 500 mg ONCE ONCE PO 12/21/19 22:45 12/21/19 22:46 DC 12/21/19 22:54 500 MG Ibuprofen 600 mg ONCE ONCE PO 12/21/19 22:00 12/21/19 22:01 DC 12/21/19 22:15 600 MG Vital Signs/I&O 12/21/19 12/21/19 12/21/19 21:44 22:15 23:17 Temp 39.3 39.3 37.3 Pulse 108 99 Resp 20 16 B/P (MAP) 150/86 (107) 117/77 Pulse Ox 99 96 O2 Delivery Room Air Room Air Capillary Refill : Less Than 3 Seconds Blood Pressure Mean: 107 Progress Note : Progress Note Influenza screen was negative. There was question of pneumonitis or infiltrate on chest x-ray. A dose of azithromycin was given in the ER with a prescription follow. Diagnostic Imaging Diagonstic Imaging: Xray Plain Films/CT/US/NM/MRI: chest Comments Chest x-ray viewed by me. Report not yet available. There are questionable lower lobe infiltrates suggestive of either pneumonitis or early pneumonia. Departure Impression Primary Impression: Pneumonitis Additional Impression: Flu-like symptoms Disposition: 01 HOME, SELF-CARE Condition: Improved Departure-Patient Inst. Decision time for Depature: 22:53 Referrals: WELLINGTON MCMILLAN DO (PCP/Family) Primary Care Physician Patient Instructions: Flu, Adult (DC), Pneumonia, Adult (DC) Add. Discharge Instructions: You may take ibuprofen up to 600 mg every 6 hours as needed and Tylenol (acetaminophen) up to 1000 mg every 6 hours as needed for fever and pain. Complete your antibiotics as prescribed. Do not return to work or school until free of fever for at least 24 hours withou t fever reducing medication. Return to the emergency room if you have worsening symptoms despite treatment. Stay well hydrated with plenty of clear liquids. All discharge instructions reviewed with patient and/or family. Voiced understanding. Scripts Azithromycin (Azithromycin) 250 Mg Tablet 250 MG PO DAILY, #4 TAB 0 Refills Prov: ROHIT BRANHAM MD 12/21/19 Work/School Note: Work Release Form Date Seen in the Emergency Department: Dec 21, 2019 Return to Work: Dec 23, 2019 Restrictions: Return-No Fever (24hrs) ROHIT BRANHAM MD Dec 21, 2019 22:03
[2019-12-21] MEDS ORDERED: AZITHROMYCIN 250 MG TAB (ZITHROMAX) PO ONE (22:45)
[2019-12-21] MEDS ORDERED: AZIT250T12 PO (22:54)
[2019-12-21 23:17] VITALS: BP 117/77
--- NOTE | 2019-12-22 06:31 | Diagnostic Imaging Report ---
INDICATION: Fever. COMPARISON: 10/24/2018. FINDINGS: Frontal and lateral views of the chest demonstrate clear lungs bilaterally. The heart is normal. There is no pneumothorax. Osseous structures normal. IMPRESSION: Negative chest. Dictated by: Dictated on workstation # [id number]
== END 2019-12-21 23:18 | disposition home or self-care (01) ==
LOC: EDUNIT# 21:33 → ER 21:35
DX: J18.9 Pneumonia, unspecified organism (principal); R09.89 Other specified symptoms and signs involving the circulatory and respiratory systems; F17.210 Nicotine dependence, cigarettes, uncomplicated; Z79.52 Long term (current) use of systemic steroids
CPT/HCPCS: 71046; 87804

== ENCOUNTER → 2021-06-06 | Outpatient (CLI) | payer BC, OTHER ==
--- NOTE | 2021-06-06 17:10 | Diagnostic Imaging Report ---
INDICATION: Left ankle pain. AP, oblique, and lateral views of the left ankle are obtained. No fracture or acute bony abnormality is seen. There is some soft tissue swelling. IMPRESSION: Soft tissue swelling with no acute bony abnormality of the left ankle. Dictated by: Dictated on workstation # [id number]
== END ==
LOC: RAD 16:14
PROVIDERS: ATTEND Nurse Practitioner Family
DX: M25.472 Effusion, left ankle (principal)
CPT/HCPCS: 73610